=== PATIENT | female | born 1985 | race African-American/Black ===

== ENCOUNTER 2016-09-10 08:48 | Outpatient (CLI) | payer MEDICAID ==
[~2016-09-10] VITALS: Ht 170.2 cm; Wt 65.0 kg
[2016-09-10 09:06] VITALS: BP 118/79
[2016-09-10 10:12] LABS: DAU SCREEN DISCLAIMER
== END 2016-09-10 11:25 | disposition home or self-care (01) ==
LOC: LDOP 08:48
PROVIDERS: ATTEND Obstetrics & Gynecology
DX: O26.893 Other specified pregnancy related conditions, third trimester (principal); O99.513 Diseases of the respiratory system complicating pregnancy, third trimester; R10.9 Unspecified abdominal pain; R11.0 Nausea; J45.909 Unspecified asthma, uncomplicated; Z3A.33 33 weeks gestation of pregnancy
CPT/HCPCS: 59025; 80307; 81003; 99201; G0463

== ENCOUNTER 2016-10-10 08:28 | Inpatient (IN) | payer MEDICAID ==
[~2016-10-10] VITALS: Ht 170.2 cm; Wt 65.0 kg
[2016-10-10 08:39] VITALS: BP 134/78
[2016-10-10] MEDS ORDERED: NEWBORN KIT ONE (10:03)
[2016-10-10] MEDS ORDERED: MISOPROSTOL 200 MCG TABLET ONE (10:03)
[2016-10-10] MEDS ORDERED: LIDOCAINE 1%, 20ML ONE (10:03)
[2016-10-10] MEDS ORDERED: OXYTOCIN 30U/ 0.9% NaCL 500ML 500 ML ONE (10:03)
[2016-10-10 10:08] LABS: DAU SCREEN DISCLAIMER
[2016-10-10] MEDS ORDERED: OXYTOCIN 30U/ 0.9% NaCL 500ML 500 ML IV ONE (10:29)
[2016-10-10] MEDS ORDERED: ONDANSETRON 2MG/ML, 2ML IVPush PRN (10:30)
[2016-10-10] MEDS ORDERED: FENTANYL PF 100 MCG/2ML IVPush PRN (10:30)
[2016-10-10 10:42] LABS: HEMATOCRIT 31.2 % (34.6-47.8); WHITE BLOOD COUNT 8.6 x10^3/uL (3.4-10)
[2016-10-10 11:00] LABS: HIV 1&2 ANTIBODY SCREEN Nonreactive (Nonreactive); HIV-1 p24 ANTIGEN Nonreactive (Nonreactive)
[2016-10-10 11:13] LABS: ASPARTATE AMINO TRANSFERASE 33 U/L (15-37); BLOOD UREA NITROGEN 6 mg/dL (7-18)
[2016-10-10] MEDS: D5%-LACTATED RINGERS 1,000 ML IV SCH ×2 (11:27→19:27)
[2016-10-10] MEDS ORDERED: SODIUM CHLORIDE FLUSH 10ML SYR IVF PRN (11:30)
[2016-10-10] MEDS: LACTATED RINGERS 1,000 ML IV SCH ×5 (11:30→21:10)
[2016-10-10] MEDS ORDERED: FENTANYL PF 100 MCG/2ML ONE ×5 (12:38→21:23)
[2016-10-10] MEDS: FENTANYL PF 100 MCG/2ML IV PRN ×2 (12:43→17:15)
[2016-10-10] MEDS ORDERED: PREN1TAB60 PO (13:22)
[2016-10-10] MEDS ORDERED: OXYTOCIN 30U/ 0.9% NaCL 500ML 500 ML IV PRN (16:56)
[2016-10-10] MEDS ORDERED: BUPIVACAINE 0.25% ONE ×3 (17:30→21:16)
[2016-10-10] MEDS ORDERED: FENTANYL/BUPIV./NS/PF 250 ML EPIDCONT ONE ×2 (17:30→17:35)
[2016-10-10] MEDS ORDERED: LIDOCAINE/PF 1.5%-EPI 1:200K, 30ML ONE (17:35)
[2016-10-10] MEDS ORDERED: LACTATED RINGERS 1,000 ML IV SCH (19:40)
[2016-10-10] MEDS ORDERED: FENTANYL/BUPIV./NS/PF 250 ML EPIDCONT SCH (19:40)
[2016-10-10] MEDS ORDERED: LACTATED RINGERS 1,000 ML IVBOLUS PRN (20:00)
[2016-10-10] MEDS ORDERED: EPHEDRINE 50 MG/ML, 1ML IVPush PRN (20:00)
[2016-10-10] MEDS ORDERED: METOCLOPRAMIDE 5 MG/ML, 2ML ONE (21:08)
[2016-10-10] MEDS ORDERED: SODIUM CITRATE/CITRIC ACID 30 ML UDC ONE (21:08)
[2016-10-10] MEDS: OXYTOCIN 30U/ 0.9% NaCL 500ML 500 ML IV SCH (21:10)
[2016-10-10] MEDS ORDERED: CEFAZOLIN 1,000 MG ONE (21:16)
[2016-10-10] MEDS ORDERED: LIDOCAINE 2%, 10ML ONE (21:16)
[2016-10-10] MEDS ORDERED: METHYLERGONOVINE 0.2 MG/ML IM PRN (21:30)
[2016-10-10] MEDS ORDERED: AZITHROMYCIN 500 MG in SODIUM CHLORIDE 0.9% 250 ML IV ONE (21:30)
[2016-10-10] MEDS ORDERED: SIMETHICONE 80 MG CHEW TAB PO PRN (21:30)
[2016-10-10] MEDS ORDERED: CARBOPROST TROMETHAMINE 250 MCG/ML, 1ML IM PRN (21:30)
[2016-10-10] MEDS ORDERED: ONDANSETRON 2MG/ML, 2ML IV PRN (21:30)
[2016-10-10] MEDS ORDERED: MISOPROSTOL 200 MCG TABLET PR PRN (21:30)
[2016-10-10] MEDS ORDERED: OXYcodone/APAP 5/325MG TABLET PO PRN (21:30)
[2016-10-10] MEDS ORDERED: CALCIUM CARBONATE 500 MG TAB.CHEW PO PRN (21:30)
[2016-10-10] MEDS ORDERED: morphine SULFATE/PF 1 MG/ML, 10ML ONE (21:35)
[2016-10-11] MEDS ORDERED: CARBOPROST TROMETHAMINE 250 MCG/ML, 1ML IM ONE (00:13)
[2016-10-11 00:20] VITALS: BP 124/74
[2016-10-11 04:00] VITALS: BP 125/78
[2016-10-11] MEDS: KETOROLAC 30 MG/1 ML IVPush SCH ×4 (04:06→20:54)
[2016-10-11] MEDS: OXYcodone/APAP 5/325MG TABLET PO PRN ×2 (04:07→18:34)
[2016-10-11] MEDS: LACTATED RINGERS 1,000 ML IV SCH ×5 (05:10→21:10)
[2016-10-11 05:27] LABS: HEMATOCRIT 28.6 % (34.6-47.8); HEMOGLOBIN 9.1 g/dL (11.7-16.4); WHITE BLOOD COUNT 10.9 x10^3/uL (3.4-10)
[2016-10-11] MEDS: OXYTOCIN 30U/ 0.9% NaCL 500ML 500 ML IV SCH ×2 (07:10→17:01)
[2016-10-11 08:25] VITALS: BP 123/76
[2016-10-11] MEDS: PRENATAL VIT/IRON/FA 1 EACH TABLET PO SCH (08:39)
[2016-10-11] MEDS: DOCUSATE 100 MG CAPSULE PO PRN (08:39)
[2016-10-11 12:00] VITALS: BP 137/84
[2016-10-11 16:00] VITALS: BP 136/89
[2016-10-11 19:50] VITALS: BP 130/87
[2016-10-12] MEDS: OXYTOCIN 30U/ 0.9% NaCL 500ML 500 ML IV SCH ×3 (03:10→23:10)
[2016-10-12] MEDS: LACTATED RINGERS 1,000 ML IV SCH ×6 (03:10→23:10)
[2016-10-12] MEDS: KETOROLAC 30 MG/1 ML IVPush SCH ×4 (04:07→22:45)
[2016-10-12] MEDS: OXYcodone/APAP 5/325MG TABLET PO PRN (06:03)
[2016-10-12] MEDS: DOCUSATE 100 MG CAPSULE PO PRN ×2 (08:46→22:45)
[2016-10-12] MEDS: PRENATAL VIT/IRON/FA 1 EACH TABLET PO SCH (08:46)
[2016-10-12] MEDS: FERROUS SULFATE 325 MG TABLET PO SCH ×2 (08:46→16:47)
[2016-10-12 08:50] VITALS: BP 130/81
[2016-10-12 19:20] VITALS: BP 131/82
[2016-10-13] MEDS: KETOROLAC 30 MG/1 ML IVPush SCH (04:00)
[2016-10-13] MEDS: OXYcodone/APAP 5/325MG TABLET PO PRN (04:37)
[2016-10-13] MEDS: IBUPROFEN 600 MG TABLET PO PRN ×2 (04:37→13:58)
[2016-10-13] MEDS: DOCUSATE 100 MG CAPSULE PO PRN (07:30)
[2016-10-13] MEDS: PRENATAL VIT/IRON/FA 1 EACH TABLET PO SCH (07:30)
[2016-10-13] MEDS: FERROUS SULFATE 325 MG TABLET PO SCH (07:30)
[2016-10-13 08:00] VITALS: BP 132/84
[2016-10-13] MEDS ORDERED: OXYC-302 PO (17:04)
[2016-10-13] MEDS ORDERED: IBUP-1222 PO (17:05)
[2016-10-13] MEDS ORDERED: DOCU-131 PO (17:06)
== END 2016-10-13 17:15 | disposition home or self-care (01) | DRG 775 ==
LOC: LDOP 08:28 → LDIP 10:09 → 2NW 10-11 00:06
PROVIDERS: ADMIT Student in an Organized Health Care Education/Training Program; ATTEND Student in an Organized Health Care Education/Training Program
DX: O99.52 Diseases of the respiratory system complicating childbirth (principal); Z37.0 Single live birth; O36.5930 Maternal care for other known or suspected poor fetal growth, third trimester, not applicable or unspecified; J45.909 Unspecified asthma, uncomplicated; O76 Abnormality in fetal heart rate and rhythm complicating labor and delivery; Z3A.37 37 weeks gestation of pregnancy; Z88.1 Allergy status to other antibiotic agents
CPT/HCPCS: 36415; 76805; 80053; 80307; 81001; 82570; 82803; 82962; 84156; 84550; 85025; 86703; 86850; 86900; 87899; J0690; J1885; J2274; J3010; J3490; G0435; J2590; J7120

== ENCOUNTER 2017-03-23 19:33 | Emergency (ER) | payer MEDICAID ==
[~2017-03-23] VITALS: Ht 170.2 cm; Wt 55.0 kg
[~2017-03-23 19:33] MED LIST: DOCU-131 PO; IBUP-1222 PO; OXYC-302 PO; PREN1TAB60 PO
[2017-03-23 19:34] VITALS: BP 146/92
[2017-03-23] MEDS ORDERED: OXYcodone/APAP 5/325MG TABLET PO ONE (20:00)
[2017-03-23] MEDS ORDERED: OXYcodone/APAP 5/325MG TABLET ONE (20:03)
[2017-03-23] MEDS ORDERED: HYDROmorphone 1 MG/ML, 1ML IM STA (20:15)
[2017-03-23] MEDS ORDERED: ONDANSETRON ODT 4 MG ONE (20:29)
[2017-03-23] MEDS ORDERED: ONDANSETRON ODT 4 MG PO ONE (20:30)
== END 2017-03-23 20:43 | disposition home or self-care (01) ==
LOC: ED 20:37
DX: K02.9 Dental caries, unspecified (principal); F17.210 Nicotine dependence, cigarettes, uncomplicated; J45.909 Unspecified asthma, uncomplicated
CPT/HCPCS: 99283; Q0162

== ENCOUNTER 2017-06-05 12:46 | Emergency (ER) | payer MEDICAID ==
[~2017-06-05] VITALS: Ht 170.2 cm; Wt 62.0 kg
[2017-06-05 15:08] LABS: BASOPHILS # (AUTO) 0.11 x10^3/uL (0-0.1); BASOPHILS % (AUTO) 1 % (0-1); EOSINOPHILS # (AUTO) 0.11 x10^3/uL (0-0.4); EOSINOPHILS % (AUTO) 1 % (1-7); LYMPHOCYTES # (AUTO) 1.97 x10^3/uL (1-3.4); LYMPHOCYTES % (AUTO) 17 % (22-44); MD NO; MEAN CORPUSCULAR HEMOGLOBIN 27.6 pg (27.0-34.8); MEAN CORPUSCULAR HGB CONC 32.8 g/dL (32.4-35.8); MEAN CORPUSCULAR VOLUME 84.2 fL (80-100); MEAN PLATELET VOLUME 9.7 fL (7.4-10.4); MONOCYTES # (AUTO) 0.62 x10^3/uL (0.2-0.8); MONOCYTES % (AUTO) 5 % (2-9); NEUTROPHILS # (AUTO) 8.98 x10^3/uL (1.8-6.8); NEUTROPHILS % (AUTO) 76 % (42-75); PLATELET COUNT 286 x10^3/uL (130-400); RED BLOOD COUNT 4.46 x10^6/uL (3.82-5.3); RED CELL DISTRIBUTION WIDTH 15.7 % (9.6-15.2)
[2017-06-05 15:13] LABS: ALBUMIN 3.6 g/dL (3.4-5.0); ANION GAP 8 mmol/L (5-15); CHLORIDE 101 mmol/L (98-107)
[2017-06-05 15:17] LABS: TROPONIN I < 0.015 ng/mL (0.000-0.045)
[2017-06-05 15:27] VITALS: BP 141/83
[2017-06-05 15:29] LABS: MICROSCOPIC NOT IND
[2017-06-05 15:30] LABS: CULTURE INDICATED? NO
== END 2017-06-05 15:56 | disposition home or self-care (01) ==
LOC: ED 15:50
DX: O26.892 Other specified pregnancy related conditions, second trimester (principal); O99.512 Diseases of the respiratory system complicating pregnancy, second trimester; J45.30 Mild persistent asthma, uncomplicated; Z3A.14 14 weeks gestation of pregnancy
CPT/HCPCS: 36415; 80048; 81003; 82040; 84484; 85025; 93005; 99285

== ENCOUNTER 2017-11-09 16:10 | Emergency (ER) | payer MEDICAID ==
[~2017-11-09] VITALS: Ht 170.2 cm; Wt 66.8 kg
[2017-11-09 16:13] VITALS: BP 132/87
== END 2017-11-09 17:39 | disposition home or self-care (01) ==
LOC: ED 16:40
DX: L29.8 Other pruritus (principal); J45.909 Unspecified asthma, uncomplicated
CPT/HCPCS: 99282

== ENCOUNTER 2017-11-15 02:33 | Inpatient (IN) | payer MEDICAID ==
[~2017-11-15] VITALS: Ht 170.2 cm; Wt 76.0 kg
[2017-11-15 02:45] VITALS: BP 161/96
[2017-11-15] MEDS ORDERED: ONDANSETRON ODT 8 MG ONE (02:53)
[2017-11-15] MEDS: ONDANSETRON ODT 8 MG PO PRN (03:00)
[2017-11-15] MEDS ORDERED: D5%-LACTATED RINGERS 1,000 ML IV SCH (03:13)
[2017-11-15] MEDS ORDERED: LACTATED RINGERS 1,000 ML IV SCH ×2 (03:13→04:00)
[2017-11-15 03:50] LABS: BASOPHILS # (AUTO) 0.01 x10^3/uL (0-0.1); BASOPHILS % (AUTO) 0 % (0-1); EOSINOPHILS # (AUTO) 0.06 x10^3/uL (0-0.4); EOSINOPHILS % (AUTO) 1 % (1-7); LYMPHOCYTES % (AUTO) 14 % (22-44); MD NO; MEAN CORPUSCULAR HEMOGLOBIN 27.1 pg (27.0-34.8); MEAN CORPUSCULAR HGB CONC 32.2 g/dL (32.4-35.8); MEAN CORPUSCULAR VOLUME 84.1 fL (80-100); MONOCYTES # (AUTO) 0.44 x10^3/uL (0.2-0.8); MONOCYTES % (AUTO) 4 % (2-9); NEUTROPHILS # (AUTO) 9.17 x10^3/uL (1.8-6.8); NEUTROPHILS % (AUTO) 81 % (42-75); PLATELET COUNT 202 x10^3/uL (130-400); RED BLOOD COUNT 3.85 x10^6/uL (3.82-5.3); RED CELL DISTRIBUTION WIDTH 15.7 % (9.6-15.2)
[2017-11-15 03:52] LABS: ALANINE AMINOTRANSFERASE 23 U/L (12-78); ALBUMIN 2.8 g/dL (3.4-5.0); ANION GAP 8 mmol/L (5-15); CALCIUM 8.4 mg/dL (8.5-10.1); CHLORIDE 104 mmol/L (98-107); CREATININE 0.71 mg/dL (0.55-1.02)
[2017-11-15 03:53] LABS: MICROSCOPIC INDICATED
[2017-11-15 03:55] LABS: ALKALINE PHOSPHATASE 223 U/L (45-117); BILIRUBIN,TOTAL 0.6 mg/dL (0.2-1.0); TOTAL PROTEIN 7.6 g/dL (6.4-8.2)
[2017-11-15 04:07] LABS: AMPHETAMINE SCREEN, URINE Negative (Negative); BARBITURATE SCREEN, URINE Negative (Negative); BENZODIAZEPINE SCREEN, URINE Negative (Negative); CANNABINOID SCREEN, URINE Positive (Negative); COCAINE SCREEN, URINE Negative (Negative); METHADONE SCREEN, URINE Negative (Negative); OPIATE SCREEN, URINE Negative (Negative)
[2017-11-15] MEDS ORDERED: KETOROLAC 30 MG/1 ML IM ONE (04:30)
[2017-11-15] MEDS ORDERED: KETOROLAC 30 MG/1 ML ONE (04:32)
[2017-11-15 07:25] LABS: MICROSCOPIC INDICATED
[2017-11-15 07:35] LABS: MEAN CORPUSCULAR HGB CONC 32.2 g/dL (32.4-35.8); MEAN CORPUSCULAR VOLUME 83.7 fL (80-100); PLATELET COUNT 190 x10^3/uL (130-400); RED BLOOD COUNT 3.54 x10^6/uL (3.82-5.3); RED CELL DISTRIBUTION WIDTH 15.6 % (9.6-15.2)
[2017-11-15 07:36] LABS: CULTURE INDICATED? NO
[2017-11-15] MEDS ORDERED: PANTOPRAZOLE 40 MG IV IVPush SCH (11:30)
[2017-11-15] MEDS ORDERED: BETAMETHASONE 6 MG/ML, 5ML IM ONE ×4 (14:30→15:00)
[2017-11-15 18:09] LABS: BASOPHILS % (AUTO) 0 % (0-1); EOSINOPHILS % (AUTO) 0 % (1-7); LYMPHOCYTES # (AUTO) 0.89 x10^3/uL (1-3.4); LYMPHOCYTES % (AUTO) 9 % (22-44); MD NO; MEAN CORPUSCULAR HEMOGLOBIN 27.4 pg (27.0-34.8); MEAN CORPUSCULAR HGB CONC 32.5 g/dL (32.4-35.8); MEAN CORPUSCULAR VOLUME 84.4 fL (80-100); MEAN PLATELET VOLUME 8.9 fL (7.4-10.4); MONOCYTES % (AUTO) 1 % (2-9); NEUTROPHILS % (AUTO) 91 % (42-75); PLATELET COUNT 168 x10^3/uL (130-400); RED BLOOD COUNT 3.28 x10^6/uL (3.82-5.3); RED CELL DISTRIBUTION WIDTH 15.2 % (9.6-15.2)
[2017-11-15 18:49] LABS: FOLATE LEVEL 12.7 ng/mL (3.1-17.5)
[2017-11-15] MEDS ORDERED: HYDROXYZINE PAMOATE 50MG CAP PO PRN (19:30)
[2017-11-15] MEDS: ACETAMINOPHEN 325 MG TABLET PO PRN ×2 (19:30→23:04)
[2017-11-15] MEDS ORDERED: ACETAMINOPHEN 325 MG TABLET ONE ×2 (19:32→22:58)
[2017-11-15] MEDS: SODIUM CHLORIDE FLUSH 3ML SYRINGE IVF SCH (22:00)
[2017-11-16] MEDS ORDERED: LACTATED RINGERS 1,000 ML IV SCH ×2 (04:00)
[2017-11-16 06:00] LABS: CALCIUM 8.5 mg/dL (8.5-10.1); CHLORIDE 107 mmol/L (98-107)
[2017-11-16 06:02] LABS: MEAN CORPUSCULAR HEMOGLOBIN 27.3 pg (27.0-34.8); MEAN CORPUSCULAR HGB CONC 32.7 g/dL (32.4-35.8); MEAN CORPUSCULAR VOLUME 83.4 fL (80-100); RED BLOOD COUNT 3.17 x10^6/uL (3.82-5.3); RED CELL DISTRIBUTION WIDTH 15.5 % (9.6-15.2)
[2017-11-16 06:05] LABS: ANION GAP 10 mmol/L (5-15)
[2017-11-16 06:06] LABS: ALANINE AMINOTRANSFERASE 22 U/L (12-78); ALBUMIN 2.4 g/dL (3.4-5.0); ALKALINE PHOSPHATASE 180 U/L (45-117); BILIRUBIN,TOTAL 0.5 mg/dL (0.2-1.0); CREATININE 0.56 mg/dL (0.55-1.02); TOTAL PROTEIN 6.4 g/dL (6.4-8.2)
[2017-11-16 06:41] LABS: BASOPHILS # (AUTO) 0.01 x10^3/uL (0-0.1); BASOPHILS % (AUTO) 0 % (0-1); EOSINOPHILS % (AUTO) 0 % (1-7); LYMPHOCYTES # (AUTO) 0.92 x10^3/uL (1-3.4); LYMPHOCYTES % (AUTO) 10 % (22-44); MD SCAN; MONOCYTES # (AUTO) 0.09 x10^3/uL (0.2-0.8); MONOCYTES % (AUTO) 1 % (2-9); NEUTROPHILS % (AUTO) 89 % (42-75); PLATELET COUNT 156 x10^3/uL (130-400)
[2017-11-16] MEDS ORDERED: SENNA/DOCUSATE TABLET ONE ×2 (08:32→19:46)
[2017-11-16] MEDS ORDERED: PRENATAL VIT/IRON/FA 1 EACH TABLET ONE (08:33)
[2017-11-16] MEDS: SODIUM CHLORIDE FLUSH 3ML SYRINGE IVF SCH ×2 (08:37→19:52)
[2017-11-16] MEDS: PRENATAL VIT/IRON/FA 1 EACH TABLET PO SCH (08:38)
[2017-11-16] MEDS ORDERED: FAMOTIDINE 20 MG TABLET ONE (08:44)
[2017-11-16] MEDS ORDERED: PANTOPRAZOLE 20MG TABLET PO ONE (09:00)
[2017-11-16] MEDS ORDERED: SENNA/DOCUSATE TABLET PO SCH (09:00)
[2017-11-16] MEDS ORDERED: BETAMETHASONE 6 MG/ML, 5ML IM ONE ×2 (15:00)
[2017-11-16] MEDS: FERROUS SULFATE 325 MG TABLET PO SCH (17:45)
[2017-11-16] MEDS ORDERED: FERROUS SULFATE 325 MG TABLET ONE (17:57)
[2017-11-16] MEDS ORDERED: BICILLIN-LA 2,400,000 UNITS/4 ML IM SCH (19:00)
[2017-11-16 19:44] LABS: BASOPHILS # (AUTO) 0.01 x10^3/uL (0-0.1); BASOPHILS % (AUTO) 0 % (0-1); EOSINOPHILS % (AUTO) 0 % (1-7); LYMPHOCYTES % (AUTO) 7 % (22-44); MD NO; MEAN CORPUSCULAR HGB CONC 32.5 g/dL (32.4-35.8); MEAN PLATELET VOLUME 9.9 fL (7.4-10.4); MONOCYTES # (AUTO) 0.19 x10^3/uL (0.2-0.8); MONOCYTES % (AUTO) 2 % (2-9); NEUTROPHILS # (AUTO) 11.71 x10^3/uL (1.8-6.8); NEUTROPHILS % (AUTO) 91 % (42-75); PLATELET COUNT 150 x10^3/uL (130-400)
[2017-11-16] MEDS: SENNA/DOCUSATE TABLET PO SCH (19:47)
[2017-11-16 19:51] LABS: ALANINE AMINOTRANSFERASE 20 U/L (12-78); ALBUMIN 2.4 g/dL (3.4-5.0); ANION GAP 11 mmol/L (5-15); BILIRUBIN, DIRECT 0.1 mg/dL (0.1-0.2); CALCIUM 8.3 mg/dL (8.5-10.1); CHLORIDE 109 mmol/L (98-107); CREATININE 0.65 mg/dL (0.55-1.02)
[2017-11-16 19:53] LABS: ALKALINE PHOSPHATASE 178 U/L (45-117); BILIRUBIN,TOTAL 0.3 mg/dL (0.2-1.0); TOTAL PROTEIN 6.5 g/dL (6.4-8.2)
[2017-11-16 20:45] LABS: MICROSCOPIC INDICATED
[2017-11-16 20:59] LABS: CREATININE,URINE RANDOM 25.7 mg/dL
[2017-11-17] MEDS ORDERED: FERROUS SULFATE 325 MG TABLET ONE ×2 (08:34→16:42)
[2017-11-17] MEDS ORDERED: PRENATAL VIT/IRON/FA 1 EACH TABLET ONE (08:34)
[2017-11-17] MEDS ORDERED: SENNA/DOCUSATE TABLET ONE (08:35)
[2017-11-17] MEDS: SENNA/DOCUSATE TABLET PO SCH (08:37)
[2017-11-17] MEDS: FERROUS SULFATE 325 MG TABLET PO SCH ×2 (08:37→16:43)
[2017-11-17] MEDS: PRENATAL VIT/IRON/FA 1 EACH TABLET PO SCH (08:37)
[2017-11-17] MEDS: SODIUM CHLORIDE FLUSH 3ML SYRINGE IVF SCH ×2 (08:38→20:16)
[2017-11-17] MEDS ORDERED: DOCUSATE 100 MG CAPSULE ONE (19:39)
[2017-11-17] MEDS: DOCUSATE 100 MG CAPSULE PO SCH (20:16)
[2017-11-18 05:21] LABS: ALBUMIN 2.2 g/dL (3.4-5.0); ANION GAP 9 mmol/L (5-15); CALCIUM 7.9 mg/dL (8.5-10.1); CHLORIDE 109 mmol/L (98-107)
[2017-11-18 05:33] LABS: ALANINE AMINOTRANSFERASE 18 U/L (12-78); ALKALINE PHOSPHATASE 149 U/L (45-117); BILIRUBIN,TOTAL 0.2 mg/dL (0.2-1.0); CREATININE 0.52 mg/dL (0.55-1.02); FREE T4 (FREE THYROXINE) 1.14 ng/dL (0.76-1.46)
[2017-11-18 06:11] LABS: BASOPHILS % (AUTO) 0 % (0-1); EOSINOPHILS # (AUTO) 0.01 x10^3/uL (0-0.4); EOSINOPHILS % (AUTO) 0 % (1-7); LYMPHOCYTES # (AUTO) 1.73 x10^3/uL (1-3.4); LYMPHOCYTES % (AUTO) 12 % (22-44); MD SCAN; MEAN CORPUSCULAR HEMOGLOBIN 27.1 pg (27.0-34.8); MEAN CORPUSCULAR HGB CONC 32.2 g/dL (32.4-35.8); MEAN CORPUSCULAR VOLUME 84.3 fL (80-100); MEAN PLATELET VOLUME 10.6 fL (7.4-10.4); MONOCYTES # (AUTO) 0.76 x10^3/uL (0.2-0.8); MONOCYTES % (AUTO) 5 % (2-9); NEUTROPHILS # (AUTO) 12.62 x10^3/uL (1.8-6.8); NEUTROPHILS % (AUTO) 84 % (42-75); PLATELET COUNT 144 x10^3/uL (130-400); RED BLOOD COUNT 3.06 x10^6/uL (3.82-5.3); RED CELL DISTRIBUTION WIDTH 15.4 % (9.6-15.2)
[2017-11-18] MEDS ORDERED: PRENATAL VIT/IRON/FA 1 EACH TABLET ONE (08:09)
[2017-11-18] MEDS ORDERED: FERROUS SULFATE 325 MG TABLET ONE ×2 (08:09→14:45)
[2017-11-18] MEDS ORDERED: DOCUSATE 100 MG CAPSULE ONE (08:09)
[2017-11-18 08:37] VITALS: BP 157/85
[2017-11-18] MEDS: DOCUSATE 100 MG CAPSULE PO SCH ×2 (08:39→21:00)
[2017-11-18] MEDS: PRENATAL VIT/IRON/FA 1 EACH TABLET PO SCH (08:39)
[2017-11-18] MEDS: FERROUS SULFATE 325 MG TABLET PO SCH ×3 (08:39→17:00)
[2017-11-18] MEDS: SODIUM CHLORIDE FLUSH 3ML SYRINGE IVF SCH ×2 (09:00→21:00)
[2017-11-18] MEDS ORDERED: SIMETHICONE 80 MG CHEW TAB ONE (19:36)
[2017-11-18] MEDS ORDERED: SIMETHICONE 80 MG CHEW TAB PO ONE (20:00)
[2017-11-19 05:36] LABS: BASOPHILS # (AUTO) 0.01 x10^3/uL (0-0.1); BASOPHILS % (AUTO) 0 % (0-1); EOSINOPHILS # (AUTO) 0.04 x10^3/uL (0-0.4); EOSINOPHILS % (AUTO) 0 % (1-7); LYMPHOCYTES # (AUTO) 1.79 x10^3/uL (1-3.4); LYMPHOCYTES % (AUTO) 12 % (22-44); MD SCAN; MEAN CORPUSCULAR HEMOGLOBIN 27.4 pg (27.0-34.8); MEAN CORPUSCULAR HGB CONC 32.5 g/dL (32.4-35.8); MEAN CORPUSCULAR VOLUME 84.4 fL (80-100); MEAN PLATELET VOLUME 10.4 fL (7.4-10.4); MONOCYTES % (AUTO) 4 % (2-9); NEUTROPHILS # (AUTO) 12.51 x10^3/uL (1.8-6.8); NEUTROPHILS % (AUTO) 84 % (42-75); PLATELET COUNT 135 x10^3/uL (130-400); RED BLOOD COUNT 3.21 x10^6/uL (3.82-5.3); RED CELL DISTRIBUTION WIDTH 15.6 % (9.6-15.2)
[2017-11-19] MEDS ORDERED: ACETAMINOPHEN 325 MG TABLET ONE (05:54)
[2017-11-19] MEDS ORDERED: hydrALAzine 20 MG/ML, 1ML ONE (06:03)
[2017-11-19] MEDS ORDERED: MORPHINE SULFATE 4 MG/ML, 1ML ONE (06:04)
[2017-11-19] MEDS ORDERED: hydrALAzine 20 MG/ML, 1ML IV ONE (06:30)
[2017-11-19] MEDS ORDERED: MORPHINE SULFATE 4 MG/ML, 1ML IVPush PRN ×2 (06:30→16:00)
[2017-11-19 06:33] LABS: ALANINE AMINOTRANSFERASE 28 U/L (12-78); ALBUMIN 2.5 g/dL (3.4-5.0); ANION GAP 11 mmol/L (5-15); CALCIUM 8.2 mg/dL (8.5-10.1); CHLORIDE 106 mmol/L (98-107); CREATININE 0.55 mg/dL (0.55-1.02)
[2017-11-19 06:36] LABS: ALKALINE PHOSPHATASE 179 U/L (45-117); BILIRUBIN,TOTAL 0.2 mg/dL (0.2-1.0); TOTAL PROTEIN 6.9 g/dL (6.4-8.2)
[2017-11-19] MEDS ORDERED: LABETALOL 100 MG TABLET PO SCH (07:00)
[2017-11-19] MEDS ORDERED: LACTATED RINGERS 1,000 ML IV SCH ×3 (07:00→15:56)
[2017-11-19] MEDS ORDERED: LABETALOL 100 MG TABLET ONE ×2 (07:09→20:11)
[2017-11-19] MEDS: SODIUM CHLORIDE FLUSH 3ML SYRINGE IVF SCH ×2 (09:00→21:00)
[2017-11-19] MEDS: DOCUSATE 100 MG CAPSULE PO SCH ×2 (09:00→21:00)
[2017-11-19] MEDS: PRENATAL VIT/IRON/FA 1 EACH TABLET PO SCH (09:00)
[2017-11-19] MEDS ORDERED: FERROUS SULFATE 325 MG TABLET ONE (09:54)
[2017-11-19] MEDS: FERROUS SULFATE 325 MG TABLET PO SCH ×2 (12:00→17:00)
[2017-11-19] MEDS ORDERED: FENTANYL PF 100 MCG/2ML ONE ×3 (13:04→22:08)
[2017-11-19] MEDS: FENTANYL PF 100 MCG/2ML IVPush PRN ×2 (13:11→22:11)
[2017-11-19] MEDS ORDERED: SODIUM CITRATE/CITRIC ACID 30 ML UDC ONE (13:43)
[2017-11-19] MEDS ORDERED: OXYTOCIN 30U/ 0.9% NaCL 500ML 500 ML ONE (13:43)
[2017-11-19] MEDS ORDERED: METOCLOPRAMIDE 5 MG/ML, 2ML ONE (13:43)
[2017-11-19] MEDS ORDERED: NEWBORN KIT ONE (13:43)
[2017-11-19] MEDS ORDERED: OXYTOCIN 30U/ 0.9% NaCL 500ML 500 ML IV SCH (13:47)
[2017-11-19] MEDS ORDERED: CEFAZOLIN 1,000 MG ONE (13:59)
[2017-11-19] MEDS ORDERED: EPHEDRINE 50 MG/ML, 1ML ONE (13:59)
[2017-11-19] MEDS ORDERED: OXYTOCIN 10 UNITS/ML, 1ML ONE (13:59)
[2017-11-19] MEDS ORDERED: METOCLOPRAMIDE 5 MG/ML, 2ML IV ONE (14:00)
[2017-11-19] MEDS ORDERED: SODIUM CITRATE/CITRIC ACID 30 ML UDC PO ONE (14:00)
[2017-11-19] MEDS ORDERED: LACTATED RINGERS 1,000 ML IVBOLUS ONE (14:00)
[2017-11-19] MEDS ORDERED: ONDANSETRON 2MG/ML, 2ML ONE (15:25)
[2017-11-19] MEDS ORDERED: MAGNESIUM SULF. PMX 20GM/500ML 500 ML IV ONE ×2 (15:53→23:55)
[2017-11-19] MEDS: OXYTOCIN 30U/ 0.9% NaCL 500ML 500 ML IV SCH (15:56)
[2017-11-19] MEDS ORDERED: FENTANYL PF 100 MCG/2ML IV PRN (16:00)
[2017-11-19] MEDS ORDERED: DOCUSATE 100 MG CAPSULE PO PRN (16:00)
[2017-11-19] MEDS ORDERED: SIMETHICONE 80 MG CHEW TAB PO PRN (16:00)
[2017-11-19] MEDS ORDERED: MISOPROSTOL 200 MCG TABLET PR PRN (16:00)
[2017-11-19] MEDS ORDERED: ONDANSETRON 2MG/ML, 2ML IV PRN ×2 (16:00)
[2017-11-19] MEDS ORDERED: LABETALOL 5MG/ML, 20ML IV PRN (16:00)
[2017-11-19] MEDS ORDERED: CARBOPROST TROMETHAMINE 250 MCG/ML, 1ML IM PRN (16:00)
[2017-11-19] MEDS ORDERED: ACETAMINOPHEN 325 MG TABLET PO PRN (16:00)
[2017-11-19] MEDS ORDERED: PROMETHAZINE 25 MG/ML, 1ML IV PRN (16:00)
[2017-11-19] MEDS ORDERED: OXYcodone 5 MG/5 ML ORAL.SOL UDC PO PRN (16:00)
[2017-11-19] MEDS ORDERED: morphine SULFATE 10 MG/ML, 1ML IVPush PRN (16:00)
[2017-11-19] MEDS ORDERED: DIAZEPAM 5 MG/ML, 2ML IVPush PRN (16:00)
[2017-11-19] MEDS: MAGNESIUM SULF. PMX 20GM/500ML 500 ML IV SCH (16:01)
[2017-11-19] MEDS ORDERED: OXYcodone 5 MG/5 ML ORAL.SOL UDC ONE (17:49)
[2017-11-19] MEDS ORDERED: morphine SULFATE 10 MG/ML, 1ML ONE (19:19)
[2017-11-19] MEDS: morphine SULFATE 10 MG/ML, 1ML IVPush PRN (19:21)
[2017-11-19] MEDS ORDERED: LABETALOL 5MG/ML, 20ML ONE (20:11)
[2017-11-19] MEDS: LABETALOL 100 MG TABLET PO SCH (20:13)
[2017-11-19] MEDS ORDERED: LABETALOL 5MG/ML, 20ML IVPush ONE (20:30)
[2017-11-19] MEDS ORDERED: OXYcodone IR 5MG TABLET ONE (21:24)
[2017-11-19] MEDS: OXYcodone IR 5MG TABLET PO PRN (21:25)
[2017-11-19] MEDS ORDERED: IBUPROFEN 600 MG TABLET ONE (22:10)
[2017-11-19] MEDS: IBUPROFEN 600 MG TABLET PO PRN (22:11)
[2017-11-20] MEDS ORDERED: OXYcodone IR 5MG TABLET ONE ×3 (01:01→14:15)
[2017-11-20] MEDS: OXYcodone IR 5MG TABLET PO PRN ×3 (01:02→17:52)
[2017-11-20] MEDS: OXYTOCIN 30U/ 0.9% NaCL 500ML 500 ML IV SCH ×2 (01:56→11:56)
[2017-11-20] MEDS ORDERED: IBUPROFEN 600 MG TABLET ONE (04:10)
[2017-11-20] MEDS: IBUPROFEN 600 MG TABLET PO PRN (05:01)
[2017-11-20 05:18] LABS: ALBUMIN 2.2 g/dL (3.4-5.0); ANION GAP 10 mmol/L (5-15); CHLORIDE 101 mmol/L (98-107)
[2017-11-20 05:21] LABS: ALANINE AMINOTRANSFERASE 33 U/L (12-78); ALKALINE PHOSPHATASE 183 U/L (45-117); BILIRUBIN,TOTAL 0.3 mg/dL (0.2-1.0); CALCIUM 7.3 mg/dL (8.5-10.1); CREATININE 0.47 mg/dL (0.55-1.02); TOTAL PROTEIN 6.5 g/dL (6.4-8.2)
[2017-11-20 05:22] LABS: BILIRUBIN, DIRECT < 0.1 mg/dL (0.1-0.2)
[2017-11-20 06:18] LABS: BASOPHILS # (AUTO) 0.03 x10^3/uL (0-0.1); BASOPHILS % (AUTO) 0 % (0-1); EOSINOPHILS # (AUTO) 0.08 x10^3/uL (0-0.4); EOSINOPHILS % (AUTO) 1 % (1-7); LYMPHOCYTES # (AUTO) 1.39 x10^3/uL (1-3.4); LYMPHOCYTES % (AUTO) 11 % (22-44); MD SCAN; MEAN CORPUSCULAR HEMOGLOBIN 27.2 pg (27.0-34.8); MEAN CORPUSCULAR HGB CONC 32.7 g/dL (32.4-35.8); MEAN CORPUSCULAR VOLUME 83.1 fL (80-100); MEAN PLATELET VOLUME 10.6 fL (7.4-10.4); MONOCYTES # (AUTO) 0.37 x10^3/uL (0.2-0.8); MONOCYTES % (AUTO) 3 % (2-9); NEUTROPHILS # (AUTO) 11.23 x10^3/uL (1.8-6.8); NEUTROPHILS % (AUTO) 86 % (42-75); PLATELET COUNT 146 x10^3/uL (130-400); RED BLOOD COUNT 3.81 x10^6/uL (3.82-5.3); RED CELL DISTRIBUTION WIDTH 15.7 % (9.6-15.2)
[2017-11-20] MEDS ORDERED: LABETALOL 100 MG TABLET ONE (07:52)
[2017-11-20] MEDS: LABETALOL 100 MG TABLET PO SCH (07:58)
[2017-11-20 08:00] VITALS: BP 154/88
[2017-11-20] MEDS: FERROUS SULFATE 325 MG TABLET PO SCH ×4 (08:00→18:19)
[2017-11-20] MEDS: LACTATED RINGERS 1,000 ML IV SCH ×4 (08:43→21:56)
[2017-11-20] MEDS: DOCUSATE 100 MG CAPSULE PO SCH ×2 (09:00→23:05)
[2017-11-20] MEDS: SODIUM CHLORIDE FLUSH 3ML SYRINGE IVF SCH ×2 (09:00→21:00)
[2017-11-20] MEDS: PRENATAL VIT/IRON/FA 1 EACH TABLET PO SCH ×2 (09:00)
[2017-11-20] MEDS: MAGNESIUM SULF. PMX 20GM/500ML 500 ML IV SCH ×3 (10:30→16:38)
[2017-11-20 10:48] VITALS: BP 140/84
[2017-11-20] MEDS ORDERED: FERROUS SULFATE 325 MG TABLET ONE (11:52)
[2017-11-20 14:00] VITALS: BP 144/84
[2017-11-20 16:30] VITALS: BP 147/97
[2017-11-20] MEDS: morphine SULFATE 10 MG/ML, 1ML IVPush PRN (17:55)
[2017-11-20] MEDS: LABETALOL 200 MG TABLET PO SCH (18:19)
[2017-11-20] MEDS ORDERED: ONDANSETRON 2MG/ML, 2ML ONE ×3 (19:06→19:07)
[2017-11-20 19:10] VITALS: BP 139/89
[2017-11-20] MEDS: ONDANSETRON ODT 8 MG PO PRN (19:19)
[2017-11-21] MEDS: OXYcodone IR 5MG TABLET PO PRN ×3 (00:02→12:24)
[2017-11-21 00:15] VITALS: BP 122/77
[2017-11-21 06:10] VITALS: BP 120/75
[2017-11-21] MEDS: FERROUS SULFATE 325 MG TABLET PO SCH ×3 (07:38→17:30)
[2017-11-21] MEDS: DOCUSATE 100 MG CAPSULE PO SCH ×2 (07:38→21:00)
[2017-11-21] MEDS: PRENATAL VIT/IRON/FA 1 EACH TABLET PO SCH ×2 (07:38→09:00)
[2017-11-21] MEDS: LABETALOL 200 MG TABLET PO SCH ×2 (07:39→17:30)
[2017-11-21] MEDS: LACTATED RINGERS 1,000 ML IV SCH ×2 (07:56→17:56)
[2017-11-21] MEDS: SODIUM CHLORIDE FLUSH 3ML SYRINGE IVF SCH ×2 (09:00→21:00)
[2017-11-21] MEDS: ACETAMINOPHEN 325 MG TABLET PO PRN ×2 (10:51→17:30)
[2017-11-21 12:30] VITALS: BP 131/78
[2017-11-21 16:50] VITALS: BP 133/79
[2017-11-21 20:10] VITALS: BP 111/73
[2017-11-22] MEDS: LACTATED RINGERS 1,000 ML IV SCH ×3 (03:56→23:56)
[2017-11-22] MEDS: IBUPROFEN 600 MG TABLET PO PRN ×2 (04:28→16:24)
[2017-11-22] MEDS: OXYcodone IR 5MG TABLET PO PRN ×2 (04:28→16:24)
[2017-11-22 08:15] VITALS: BP 162/94
[2017-11-22] MEDS: PRENATAL VIT/IRON/FA 1 EACH TABLET PO SCH ×2 (08:25→09:00)
[2017-11-22] MEDS: LABETALOL 200 MG TABLET PO SCH ×2 (08:25→17:35)
[2017-11-22] MEDS: SODIUM CHLORIDE FLUSH 3ML SYRINGE IVF SCH ×2 (08:25→19:51)
[2017-11-22] MEDS: DOCUSATE 100 MG CAPSULE PO SCH ×2 (08:25→20:49)
[2017-11-22] MEDS: FERROUS SULFATE 325 MG TABLET PO SCH ×3 (08:25→17:35)
[2017-11-22 11:45] VITALS: BP 127/86
[2017-11-22 17:31] VITALS: BP 182/96
[2017-11-22 18:17] VITALS: BP 169/72
[2017-11-22 19:19] VITALS: BP 146/99
[2017-11-22 23:46] VITALS: BP 116/67
[2017-11-23 05:11] VITALS: BP 136/82
[2017-11-23] MEDS: OXYcodone IR 5MG TABLET PO PRN ×2 (06:13→13:34)
[2017-11-23] MEDS: IBUPROFEN 600 MG TABLET PO PRN (06:13)
[2017-11-23] MEDS ORDERED: MEDROXYPROGESTERONE ACETATE 150 MG/ML IM ONE (07:00)
[2017-11-23 07:34] VITALS: BP 128/84
[2017-11-23] MEDS: PRENATAL VIT/IRON/FA 1 EACH TABLET PO SCH ×2 (09:00)
[2017-11-23] MEDS: SODIUM CHLORIDE FLUSH 3ML SYRINGE IVF SCH (09:00)
[2017-11-23] MEDS: LACTATED RINGERS 1,000 ML IV SCH (09:56)
[2017-11-23] MEDS: FERROUS SULFATE 325 MG TABLET PO SCH ×2 (10:27→13:34)
[2017-11-23] MEDS: LABETALOL 200 MG TABLET PO SCH (10:27)
[2017-11-23] MEDS: DOCUSATE 100 MG CAPSULE PO SCH (10:27)
[2017-11-23] MEDS ORDERED: DIPH,PERTUSS(ACELL),TET VAC/PF NC IM-VACC ONE (10:30)
[2017-11-23] MEDS ORDERED: MEASLES,MUMPS&RUBELLA VACC/PF 0.5 ML SQ-VACC ONE (10:30)
[2017-11-23] MEDS ORDERED: HYDROCORTISONE CRM 2.5%, 20GM TP PRN (12:00)
[2017-11-23] MEDS ORDERED: BICILLIN-LA 2,400,000 UNITS/4 ML IM SCH ×2 (12:00→17:00)
[2017-11-23] MEDS ORDERED: IBUP-1222 PO (13:08)
[2017-11-23] MEDS ORDERED: OXYC-302 PO (13:08)
[2017-11-23] MEDS ORDERED: LABE100T6 PO (13:09)
[2017-11-23] MEDS ORDERED: FERR324T8 PO (13:10)
== END 2017-11-23 14:19 | disposition home or self-care (01) | DRG 786 ==
LOC: LDOP 02:33 → LDIP 05:08 → OBSVTOIN 05:08 → 2NW 11-20 15:52
PROVIDERS: ADMIT Obstetrics & Gynecology; ATTEND Obstetrics & Gynecology
PROC: 10D00Z1 Extraction of Products of Conception, Low, Open Approach (ICD-10-PCS; principal; 2017-11-19)
DX: O34.211 Maternal care for low transverse scar from previous cesarean delivery (principal); O60.14X0 Preterm labor third trimester with preterm delivery third trimester, not applicable or unspecified; O41.03X0 Oligohydramnios, third trimester, not applicable or unspecified; O98.12 Syphilis complicating childbirth; O98.52 Other viral diseases complicating childbirth; O99.324 Drug use complicating childbirth; A08.4 Viral intestinal infection, unspecified; A53.0 Latent syphilis, unspecified as early or late; D50.9 Iron deficiency anemia, unspecified; O99.02 Anemia complicating childbirth; O99.52 Diseases of the respiratory system complicating childbirth; O11.4 Pre-existing hypertension with pre-eclampsia, complicating childbirth; F12.90 Cannabis use, unspecified, uncomplicated; J45.909 Unspecified asthma, uncomplicated; O36.5930 Maternal care for other known or suspected poor fetal growth, third trimester, not applicable or unspecified; Z3A.34 34 weeks gestation of pregnancy; Z37.0 Single live birth; Z59.0 Homelessness; Z78.9 Other specified health status; Z82.0 Family history of epilepsy and other diseases of the nervous system; Z87.891 Personal history of nicotine dependence; Z88.1 Allergy status to other antibiotic agents
CPT/HCPCS: 36415; 84155; 86592; 87806; 99285; J7121; 76805; 80053; 80307; 81001; 82248; 82570; 82607; 82728; 82731; 82746; 82803; 83021; 83540; 83550; 83690; 83735; 84156; 84157; 84165; 84425; 84439; 84443; 84550; 85025; 85027; 85660; 86762; 86780; 86850; 86900; 87086; 87340; 87491; 87591; 88307; 90715; G0378; J0561; J0690; J0702; J1885; J2405; J3010; Q0162; C9113; G0475; J0360; J1050; J2270; J2590; J2765; J3475; J7120

== ENCOUNTER 2017-11-30 13:44 | Emergency (ER) | payer MEDICAID ==
[~2017-11-30] VITALS: Ht 170.2 cm; Wt 75.0 kg
[~2017-11-30 13:44] MED LIST changes: +FERR324T8 PO; +LABE100T6 PO
[2017-11-30] MEDS ORDERED: MORPHINE SULFATE 4 MG/ML, 1ML ONE (14:11)
[2017-11-30] MEDS ORDERED: MORPHINE SULFATE 4 MG/ML, 1ML IVPush PRN (14:30)
[2017-11-30 14:37] LABS: BASOPHILS # (AUTO) 0.03 x10^3/uL (0-0.1); BASOPHILS % (AUTO) 0 % (0-1); EOSINOPHILS % (AUTO) 1 % (1-7); LYMPHOCYTES % (AUTO) 16 % (22-44); MD NO; MEAN CORPUSCULAR HEMOGLOBIN 26.6 pg (27.0-34.8); MEAN CORPUSCULAR HGB CONC 31.8 g/dL (32.4-35.8); MEAN CORPUSCULAR VOLUME 83.8 fL (80-100); MEAN PLATELET VOLUME 8.8 fL (7.4-10.4); MONOCYTES # (AUTO) 0.56 x10^3/uL (0.2-0.8); MONOCYTES % (AUTO) 4 % (2-9); NEUTROPHILS # (AUTO) 10.75 x10^3/uL (1.8-6.8); NEUTROPHILS % (AUTO) 79 % (42-75); PLATELET COUNT 407 x10^3/uL (130-400); RED BLOOD COUNT 3.84 x10^6/uL (3.82-5.3); RED CELL DISTRIBUTION WIDTH 17.7 % (9.6-15.2)
[2017-11-30 14:51] LABS: ALANINE AMINOTRANSFERASE 31 U/L (12-78); ALBUMIN 2.9 g/dL (3.4-5.0); ANION GAP 11 mmol/L (5-15); CALCIUM 8.7 mg/dL (8.5-10.1); CHLORIDE 107 mmol/L (98-107); CREATININE 0.72 mg/dL (0.55-1.02)
[2017-11-30 14:53] LABS: ALKALINE PHOSPHATASE 140 U/L (45-117); BILIRUBIN,TOTAL 0.3 mg/dL (0.2-1.0); TOTAL PROTEIN 7.5 g/dL (6.4-8.2)
[2017-11-30 15:01] LABS: MICROSCOPIC NOT IND
[2017-11-30 15:07] LABS: CULTURE INDICATED? NO
[2017-11-30] MEDS ORDERED: CLINDAMYCIN PMX 900MG/50ML 50 ML ONE (15:53)
[2017-11-30] MEDS ORDERED: CLINDAMYCIN PMX 900MG/50ML 50 ML IV ONE (16:00)
[2017-11-30] MEDS ORDERED: BICILLIN-LA 2,400,000 UNITS/4 ML IM ONE (17:00)
[2017-11-30 17:43] VITALS: BP 161/90
[2017-11-30] MEDS ORDERED: ACETAMINOPHEN 500 MG TABLET ONE (17:47)
[2017-11-30] MEDS ORDERED: ACETAMINOPHEN 500 MG TABLET PO ONE (18:00)
[2017-11-30] MEDS ORDERED: LABETALOL 100 MG TABLET PO SCH (18:00)
== END 2017-11-30 17:57 | disposition home or self-care (01) ==
LOC: ED 14:32
DX: R10.2 Pelvic and perineal pain (principal); I10 Essential (primary) hypertension; J45.909 Unspecified asthma, uncomplicated; R30.0 Dysuria; R31.9 Hematuria, unspecified; Z72.9 Problem related to lifestyle, unspecified; Z88.1 Allergy status to other antibiotic agents; Z59.0 Homelessness; S70.02XA Contusion of left hip, initial encounter; X58.XXXA Exposure to other specified factors, initial encounter; Y93.89 Activity, other specified; Y99.8 Other external cause status; Y92.89 Other specified places as the place of occurrence of the external cause
CPT/HCPCS: 36415; 76830; 80053; 81003; 85025; 87040; 96365; 96366; 96372; 96375; 99285; J0561

== ENCOUNTER 2017-12-05 05:50 | Emergency (ER) | payer MEDICAID ==
[~2017-12-05] VITALS: Ht 170.2 cm; Wt 63.7 kg
[2017-12-05] MEDS ORDERED: METOCLOPRAMIDE 5 MG/ML, 2ML ONE (06:54)
[2017-12-05] MEDS ORDERED: DIPHENHYDRAMINE 50 MG/ML, 1ML ONE (06:54)
[2017-12-05] MEDS ORDERED: SODIUM CHLORIDE 0.9% 1,000ML IVBOLUS ONE (07:00)
[2017-12-05] MEDS ORDERED: METOCLOPRAMIDE 5 MG/ML, 2ML IVPush ONE (07:00)
[2017-12-05] MEDS ORDERED: DIPHENHYDRAMINE 50 MG/ML, 1ML IVPush ONE (07:00)
[2017-12-05] MEDS ORDERED: KETOROLAC 30 MG/1 ML IVPush ONE (07:00)
[2017-12-05] MEDS ORDERED: KETOROLAC 30 MG/1 ML ONE (07:04)
[2017-12-05 07:22] LABS: BASOPHILS # (AUTO) 0.04 x10^3/uL (0-0.1); BASOPHILS % (AUTO) 1 % (0-1); EOSINOPHILS # (AUTO) 0.24 x10^3/uL (0-0.4); EOSINOPHILS % (AUTO) 3 % (1-7); LYMPHOCYTES # (AUTO) 1.78 x10^3/uL (1-3.4); LYMPHOCYTES % (AUTO) 24 % (22-44); MD NO; MEAN CORPUSCULAR HEMOGLOBIN 26.4 pg (27.0-34.8); MEAN CORPUSCULAR HGB CONC 31.8 g/dL (32.4-35.8); MEAN PLATELET VOLUME 9.2 fL (7.4-10.4); MONOCYTES # (AUTO) 0.39 x10^3/uL (0.2-0.8); MONOCYTES % (AUTO) 5 % (2-9); NEUTROPHILS % (AUTO) 67 % (42-75); PLATELET COUNT 428 x10^3/uL (130-400); RED BLOOD COUNT 4.13 x10^6/uL (3.82-5.3); RED CELL DISTRIBUTION WIDTH 17.3 % (9.6-15.2)
[2017-12-05 07:35] LABS: MICROSCOPIC NOT IND
[2017-12-05 07:36] LABS: CULTURE INDICATED? NO
[2017-12-05 07:50] VITALS: BP 130/72
== END 2017-12-05 08:36 | disposition home or self-care (01) ==
LOC: ED 06:43
DX: G44.219 Episodic tension-type headache, not intractable (principal); R10.30 Lower abdominal pain, unspecified; I10 Essential (primary) hypertension; J45.909 Unspecified asthma, uncomplicated; Z87.891 Personal history of nicotine dependence; Z88.8 Allergy status to other drugs, medicaments and biological substances
CPT/HCPCS: 36415; 76705; 81003; 85025; 96374; 96375; 99285; J1200; J1885; J2765; J7030